=== PATIENT | female | born 1990 | race Caucasian/White ===

== ENCOUNTER 2017-10-15 10:36 | Emergency (ER) | payer OTHER ==
[2017-10-15] MEDS ORDERED: Ondansetron INJ* 2 MG/ML VIAL IV ONE (11:08)
[2017-10-15] MEDS ORDERED: Morphine INJ* 4 MG/ML 1 ML CARPUJECT IV ONE ×3 (11:08→13:40)
--- NOTE | 2017-10-15 12:16 | RAD ---
HISTORY: Fall, right elbow deformity COMPARISONS: None VIEWS: 6, multiple oblique views of the right elbow and distal humerus FINDINGS: Evaluation is somewhat limited by positioning. BONE DENSITY: Normal. BONES: There is a multiply comminuted and displaced fracture of the supracondylar humerus. There is approximately 1.8 cm of displacement of the distal humerus with respect to the proximal humerus, with approximately 4.5 cm of displacement of the lateral (ulnar) bone fragments with respect to the medial bone fragments. JOINTS: There is no arthropathy. ALIGNMENT: The radial-capitellar and ulnar-trochlear articulations appear intact. SOFT TISSUES: Unremarkable. OTHER FINDINGS: None. IMPRESSION: MULTIPLY COMMINUTED AND DISPLACED FRACTURE OF THE DISTAL HUMERUS
--- NOTE | 2017-10-15 12:17 | RAD ---
Indication: RIGHT knee pain post fall. Comparison: No relevant prior exams available on the [facility] for comparison. Technique: AP, tunnel, lateral views RIGHT knee. No sunrise view could be obtained due to limitation positioning secondary to humerus fracture. Report: Intramedullary lucio at the femur with distal locking screws. No fracture, joint effusion, or malalignment. Unremarkable soft tissue contours. IMPRESSION: No radiographic evidence for acute traumatic injury of the RIGHT knee.
--- NOTE | 2017-10-15 13:10 | ED ---
David Garcia Gabriel, scribed for Sean Sheehan MD on 10/15/17 at 1106 . Upper Extremity Pain - HPI Summary HPI Summary: This patient is a 27 year old F BIBA to [facility] s/p fall on ice. The patient rates the pain 10/10 in severity. Patient reports RUE tingling and RUE pain. Patient denies LOC and head trauma. Patient has never dislocated her elbow before. Patient has not eaten since 729 when she had a breakfast shake. She has a past medical history of seizures and asthma. - History of Current Complaint Chief Complaint: EDExtremityUpper Stated Complaint: RT ARM PAIN/FALL Time Seen by Provider: 10/15/17 10:55 Hx Obtained From: Patient Hx Last Menstrual Period: 01/22/13 Mechanism Of Injury: Fall From A Standing Position Onset/Duration: Still Present Timing: Constant Severity Initially: Severe Severity Currently: Severe Pain Location: Elbow Associated Signs & Symptoms: Positive: Numbness/Tingling - in RUE, Other - RUE pain - Allergies/Home Medications Allergies/Adverse Reactions: Allergies Allergy/AdvReac Type Severity Reaction Status Date / Time Ceftriaxone [From Rocephin] Allergy Hives Verified 04/24/16 10:40 Cephalexin [From Keflex] Allergy Hives Verified 04/24/16 10:40 Ciprofloxacin [From Cipro] Allergy Hives Verified 04/24/16 10:40 Metoclopramide [From Reglan] Allergy Hives Verified 04/24/16 10:40 Home Medications: Home Medications risperiDONE TAB* [RisperDAL*] 0.25 mg PO BEDTIME 10/15/17 [History Confirmed ] PMH/Surg Hx/FS Hx/Imm Hx Endocrine/Hematology History: Reports: Hx Thyroid Disease Denies: Hx Anticoagulant Therapy, Hx Diabetes Cardiovascular History: Denies: Hx Hypertension Respiratory History: Denies: Hx Asthma, Hx Chronic Obstructive Pulmonary Disease (COPD) GI History: Denies: Hx Ulcer History: Denies: Hx Acute Renal Failure Musculoskeletal History: Denies: Hx Arthritis Opthamlomology History: Reports: Hx Contacts or Glasses Denies: Hx Cataracts Neurological History: Reports: Hx Seizures - Surgical History Surgery Procedure, Year, and Place: Rods in legs, femoral derotation, bilater severe anteversion 2004 Infectious Disease History: No Infectious Disease History: Denies: Hx Hepatitis, Hx Human Immunodeficiency Virus (HIV), Traveled Outside the [place] in Last 30 Days - Family History Known Family History: Positive: Hypertension, Diabetes - Social History Alcohol Use: None Substance Use Type: Reports: None Smoking Status (MU): Never Smoked Tobacco Review of Systems Negative: Fever, Chills Negative: Erythema Negative: Sore Throat Negative: Chest Pain Negative: Shortness Of Breath, Cough Negative: Abdominal Pain, Vomiting, Nausea Negative: dysuria, hematuria Positive: Other - pain at RUE . Negative: Myalgia, Edema Negative: Rash Neurological: Negative - dizziness, LOC Positive: Numbness - in RUE All Other Systems Reviewed And Are Negative: Yes Physical Exam - Summary Physical Exam Summary: Constitutional: Well-developed, Well-nourished, Alert. (-) Distressed Skin: Warm, Dry HENT: Normocephalic; Atraumatic Eyes: Conjunctiva normal Neck: Musculoskeletal ROM normal neck. (-) JVD, (-) Stridor, (-) Tracheal deviation Cardio: Rhythm regular, rate normal, Heart sounds normal; Intact distal pulses; The pedal pulses are 2+ and symmetric. Radial pulses are 2+ and symmetric. (-) Murmur Pulmonary/Chest wall: Effort normal. (-) Respiratory distress, (-) Wheezes, (-) Rales Abd: Soft, (-) Tenderness, (-) Distension, (-) Guarding, (-) Rebound Musculoskeletal: (-) Edema Hand is modeled but has good pulses, Elbow is defamed and TTP, arm is swollen and she will not allow passive ROM. Mild swelling over the right knee without restricted ROM Lymph: (-) Cervical adenopathy Neuro: Alert, Oriented x3 Psych: Mood and affect Normal Triage Information Reviewed: Yes Vital Signs On Initial Exam: Initial Vitals Temp Pulse Resp BP Pulse Ox 98.5 F 96 18 129/95 98 10/15/17 10:40 10/15/17 10:40 10/15/17 10:40 10/15/17 10:40 10/15/17 10:40 Vital Signs Reviewed: Yes - [place] Coma Scale Coma Scale Total: 15 Procedures - Splinting Location: Right arm from armpit to wrist Hand-Made Type: orthoglass - 18 cm Splint: posterior Pre-Proc Neuro Vasc Exam: normal Post-Proc Neuro Vasc Exam: unchanged from pre-exam Diagnostics - Vital Signs Vital Signs Temp Pulse Resp BP Pulse Ox 10/15/17 10:40 98.5 F 96 18 129/95 98 - Laboratory Lab Statement: Any lab studies that have been ordered have been reviewed, and results considered in the medical decision making process. - Radiology knee xray Radiology Interpretation Completed By: Radiologist - No radiographic evidence for acute traumatic injury of the RIGHT knee. ED physician has reviewed this radiology report. elbow xray Radiology Interpretation Completed By: Radiologist - MULTIPLY COMMINUTED AND DISPLACED FRACTURE OF THE DISTAL HUMERUS ED physician has reviewed this radiology report. Course/Dx - Course Assessment/Plan: This patient is a 27 year old F BIBA to [facility] s/p fall on ice. The patient rates the pain 10/10 in severity. Patient reports RUE tingling and RUE pain. Patient denies LOC and head trauma. Patient has never dislocated her elbow before. Patient has not eaten since 729 when she had a breakfast shake. She has a past medical history of seizures and asthma. Elbow Xray reveals, per radiologist, MULTIPLY COMMINUTED AND DISPLACED FRACTURE OF THE DISTAL HUMERUS. Knee xray reveals, per radiologist, No radiographic evidence for acute traumatic injury of the RIGHT knee. In the ED course the patient was given Zofran and morphine. We discussed patient care with Dr. Hamilton and he stated that he is concerned about an arterial injury and that due to the possibility of losing the pulse during the reduction she should be transferred to a vascular capable hospital in a posterior splint. We discussed patient care with Dr. Hawk made her aware it was not reduced and she has accepted the patient for transfer. Patient will be transferred for a higher state of care. The patient is agreeable with this plan. - Diagnoses Provider Diagnoses: Elbow fracture, Elbow dislocation - Physician Notifications Discussed Care of Patient With: Sharath Hamilton Time Discussed With Above Provider: 12:05 Instructed by Provider To: Other - We discussed patient care with Dr. Hamilton and he stated that he is concerned about an arterial injury and that due to the possibility of losing the pulse during the reduction she should be transferred to a vascular capable hospital in a posterior splint. Discharge - Discharge Plan Condition: Fair Disposition: TRANS HIGHER L OF CARE FAC Referrals: Parth Balderas DO [Primary Care Provider] - Consult Consult: 12:23 We discussed patient care with Dr. Hawk made her aware it was not reduced and she has accepted the patient for transfer. The documentation as recorded by the David faustin Gabriel accurately reflects the service I personally performed and the decisions made by me, Sean Sheehan MD.
[2017-10-15] MEDS ORDERED: Morphine INJ* 4 MG/ML 1 ML CARPUJECT ONE (13:38)
[2017-10-15 13:59] VITALS: BP 126/90
== END 2017-10-15 13:39 | disposition short-term general hospital (02) ==
LOC: ED 10:36
DX: S42.401A Unspecified fracture of lower end of right humerus, initial encounter for closed fracture (principal); S53.104A Unspecified dislocation of right ulnohumeral joint, initial encounter; W00.9XXA Unspecified fall due to ice and snow, initial encounter; Y92.9 Unspecified place or not applicable
CPT/HCPCS: 96374; 96375; 99284; J2270; J2405

== ENCOUNTER 2018-12-17 07:17 | Emergency (ER) | payer OTHER ==
[2018-12-17 07:32] VITALS: BP 126/82
--- NOTE | 2018-12-17 07:47 | UC ---
Laceration HPI - HPI Summary HPI Summary: laceration right earlobe x 1 days had an embedded earring in her right earlobe, was removed yesterday made a laceration to the right earlobe as the earring was remove, no significant swelling, bleeding or discharge - History Of Current Complaint Chief Complaint: UCLaceration Stated Complaint: EAR ISSUE Time Seen by Provider: 12/17/18 07:27 Hx Obtained From: Patient, Family/Retail Administrative Assistant Hx Last Menstrual Period: 01/22/13 Laceration Location: Ear - right earlobe Mechanism Of Injury: FB Potential Onset/Duration: Sudden Onset, Lasting Days - 1, Still Present Severity: Moderate Pain Intensity: 6 Aggravating Factors: Other: - touch - Allergies/Home Medications Allergies/Adverse Reactions: Allergies Allergy/AdvReac Type Severity Reaction Status Date / Time ceftriaxone [From Rocephin] Allergy Hives Verified 12/17/18 07:34 cephalexin [From Keflex] Allergy Hives Verified 12/17/18 07:34 ciprofloxacin [From Cipro] Allergy Hives Verified 12/17/18 07:34 metoclopramide [From Reglan] Allergy Hives Verified 12/17/18 07:34 Home Medications: Home Medications Acetaminophen [APAP] 325 mg PO Q4HR PRN 12/17/18 [History Confirmed 12/17/18] Eucalyptus/Menthol [Cough Drops] 1 unit PO DAILY PRN 12/17/18 [History Confirmed 12/17/18] Fluticasone Furoate [Arnuity Ellipta] 100 mcg IN DAILY 12/17/18 [History Confirmed 12/17/18] Mineral Oil [Mineral Oil Heavy] 4 drop BOTH EARS DAILY PRN 12/17/18 [History Confirmed 12/17/18] raNITIdine HCl [Ranitidine HCl] 150 mg PO DAILY PRN 12/17/18 [History Confirmed 12/17/18] PMH/Surg Hx/FS Hx/Imm Hx - Additional Past Medical History Additional PMH: asthma, GERD, bipolar, intellectual disability, femoral deterioration - bilateral, ADHD, 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 Respiratory History: Asthma Neurological History: Seizures Psychological History: Bipolar Disorder Other History Of: Negative For: Anticoagulant Therapy - Surgical History Surgical History: Yes Surgery Procedure, Year, and Place: Rods in legs, femoral derotation, bilater severe anteversion 2004 - Family History Known Family History: Positive: Hypertension, Diabetes - Social History Alcohol Use: None Substance Use Type: None Smoking Status (MU): Never Smoked Tobacco Review of Systems All Other Systems Reviewed And Are Negative: Yes Constitutional: Positive: Negative Eyes: Positive: Negative ENT: Positive: Negative Respiratory: Positive: Negative Cardiovascular: Positive: Negative Is Patient Immunocompromised?: No Physical Exam Triage Information Reviewed: Yes Appearance: Well-Appearing, No Pain Distress, Well-Nourished Vital Signs: Initial Vital Signs Temp 98.8 F 12/17/18 07:25 Pulse 104 12/17/18 07:25 Resp 18 12/17/18 07:25 BP 126/82 12/17/18 07:25 Pulse Ox 97 12/17/18 07:25 Vital Signs Reviewed: Yes Eye Exam: Normal Eyes: Positive: Conjunctiva Clear ENT: Positive: Normal ENT inspection, Hearing grossly normal, Pharynx normal Neck: Positive: Supple, Nontender, No Lymphadenopathy Respiratory: Positive: Chest non-tender, Lungs clear, Normal breath sounds Cardiovascular: Positive: RRR, No Murmur, Pulses Normal Skin: Positive: Other - right earlobe : old laceration , no swelling, no erytheama, no discharge, no need for repair Laceration Course/Dx - Diagnosis Provider Diagnosis: Laceration of right ear lobe Discharge - Sign-Out/Discharge Documenting (check all that apply): Patient Departure All imaging exams completed and their final reports reviewed: No Studies - Discharge Plan Condition: Stable Disposition: HOME Patient Education Materials: Laceration Without Closure (ED) Referrals: Parth Balderas DO [Primary Care Provider] - If Needed Additional Instructions: laceration of the earlobe no need for repair , may have some scaring keep the area clean and dry follow up if any signs of infection , including increase redness, swelling, pain , discharge, fever - Billing Disposition and Condition Condition: STABLE Disposition: Home
== END 2018-12-17 07:42 | disposition home or self-care (01) ==
LOC: UCEAST 07:17
DX: S01.311A Laceration without foreign body of right ear, initial encounter (principal); K21.9 Gastro-esophageal reflux disease without esophagitis; J45.909 Unspecified asthma, uncomplicated; F90.9 Attention-deficit hyperactivity disorder, unspecified type; Z79.899 Other long term (current) drug therapy; Z79.51 Long term (current) use of inhaled steroids; Z88.1 Allergy status to other antibiotic agents; Z88.8 Allergy status to other drugs, medicaments and biological substances; X58.XXXA Exposure to other specified factors, initial encounter; Y92.9 Unspecified place or not applicable
CPT/HCPCS: 99211; G0463